=== PATIENT | female | born 1995 | race Two or more races ===

== ENCOUNTER 2017-07-31 07:32 | Emergency (ER) | payer OTHER ==
[2017-07-31 07:54] VITALS: BP 115/73
--- NOTE | 2017-07-31 08:12 | UC ---
Complaint Female HPI - HPI Summary HPI Summary: URINARY BURNING AND FREQUENCY X 1 DAYS NO FEVER, NO CHILLS, NO FLANK PAIN + HEMATURIA - History Of Current Complaint Chief Complaint: UCGU Stated Complaint: URINARY COMPLAINT Time Seen by Provider: 07/31/17 07:49 Hx Obtained From: Patient Hx Last Menstrual Period: 07/27/17 Onset/Duration: Gradual Onset, Lasting Days - 1, Still Present Timing: Constant Severity Initially: Moderate Severity Currently: Moderate Character: Burning Aggravating Factor(s): Urination Alleviating Factor(s): Nothing Associated Signs And Symptoms: Negative: Fever, Back Pain, Vaginal Bleeding/ Discharge, Vaginal Discharge, Nausea, Vomiting(# Of Episodes =), Genital Swelling, Genital Blisters, Retained Foregin Body (Specify) - Allergies/Home Medications Allergies/Adverse Reactions: Allergies Allergy/AdvReac Type Severity Reaction Status Date / Time gluten intolerance Allergy Vomiting Uncoded 07/31/17 07:54 Home Medications: Home Medications Vitamins B, C, E 1 each PO DAILY 07/31/17 [History Confirmed 07/31/17] PMH/Surg Hx/FS Hx/Imm Hx Previously Healthy: Yes - Surgical History Surgical History: None - Family History Known Family History: Negative: Diabetes - Social History Alcohol Use: Occasionally Substance Use Type: None Smoking Status (MU): Never Smoked Tobacco Review of Systems Constitutional: Negative Skin: Negative Eyes: Negative ENT: Negative Respiratory: Negative Genitourinary: Hematuria, Frequency, Urgency Is Patient Immunocompromised?: No All Other Systems Reviewed And Are Negative: Yes Physical Exam Triage Information Reviewed: Yes Appearance: Well-Appearing, No Pain Distress, Well-Nourished Vital Signs: Initial Vital Signs Temp 98.2 F 07/31/17 07:49 Pulse 91 07/31/17 07:49 Resp 18 07/31/17 07:49 BP 115/73 07/31/17 07:49 Eye Exam: Normal Eyes: Positive: Conjunctiva Clear ENT: Positive: Normal ENT inspection, Hearing grossly normal, Pharynx normal Neck: Positive: Supple, Nontender, No Lymphadenopathy Respiratory: Positive: Chest non-tender, Lungs clear, Normal breath sounds Cardiovascular: Positive: RRR, No Murmur, Pulses Normal Abdomen Description: Positive: Nontender, Soft. Negative: CVA Tenderness (R), CVA Tenderness (L), Distended, Guarding Bowel Sounds: Positive: Present Skin Exam: Normal Complaint Female Dx - Differential Dx/Diagnosis Provider Diagnoses: UTI Discharge - Discharge Plan Condition: Stable Disposition: HOME Prescriptions: Sulfamethox/Trimethoprim DS* [Bactrim DS 800/160 TAB*] 1 tab PO BID #14 tab Patient Education Materials: Urinary Tract Infection in Women (ED) Additional Instructions: FOLLOW UP NEEDED
--- NOTE | 2017-08-02 07:37 | UC ---
Progress - Progress Note Progress Note: neg urine culture stop antibiotic recheck prn
== END 2017-07-31 08:23 | disposition home or self-care (01) ==
LOC: UCCORT 07:32
DX: N39.0 Urinary tract infection, site not specified (principal); Z91.02 Food additives allergy status
CPT/HCPCS: 81003; 87086; 99202; G0463